=== PATIENT | male | born 1965 | race African-American/Black ===

== ENCOUNTER 2017-10-28 10:39 | Emergency (ER) | payer OTHER ==
[~2017-10-28] VITALS: Ht 185.4 cm; Wt 154.2 kg
--- OUTSIDE RECORDS SUMMARY | ~2017-10-28 | XMS | Clinical Summary ---
Demographics + + + | Address | [address] | | | [place] [address] | + + + | Home Phone | | + + + | Preferred Language | Unknown | + + + | Marital Status | | + + + | Hinduism Affiliation | 1009 | + + + | Race | Unknown | + + + | Ethnic Group | Unknown | + + + Author + + + | Author | [facility] | | | and [place] | + + + | Organization | [facility] | | | and [place] | + + + | Address | Unknown | + + + | Phone | Unavailable | + + + Support + + +---------+ + | Name | Relationship | Address | Phone | + + +---------+ + | Nadeen Viera | ECON | Unknown | | + + +---------+ + | Aquiles Castaneda | ECON | Unknown | | + + +---------+ + Care Team Providers + +------+ + | Care Hotel Housekeeper Name | Role | Phone | + +------+ + | Sofi Hayes PA-C | PP | Unavailable | + +------+ + Allergies + + + + + + | Active Allergy | Reactions | Severity | Noted | Comments | | | | | Date | | + + + + + + | Lisinopril | Hives, Rash | High | 02/04/20 | | | | | | 16 | | + + + + + + Current Medications + + +--------+---------+------+------+-------+ | Prescription | Sig. | Disp. | Refills | Star | End | Statu | | | | | | t | Date | s | | | | | | Date | | | + + +--------+---------+------+------+-------+ | losartan (COZAAR) | Take 100 mg by mouth | | | | | Activ | | 100 MG tablet | Daily. | | | | | e | + + +--------+---------+------+------+-------+ | amLODIPine | Take 5 mg by mouth | | | | | Activ | | (NORVASC) 5 mg | Daily. | | | | | e | | tablet | | | | | | | + + +--------+---------+------+------+-------+ | aspirin 81 mg | Take 1 tablet by | 30 | | 08/0 | | Activ | | chewable tablet | mouth Daily. | tablet | | 1/20 | | e | | | | | | 16 | | | + + +--------+---------+------+------+-------+ | nitroglycerin | Place 1 tablet under | 25 | 3 | 08/0 | | Activ | | (NITROSTAT) 0.4 mg | the tongue every 5 | tablet | | 1/20 | | e | | SL tablet | minutes as needed | | | 16 | | | | | for Chest pain. | | | | | | + + +--------+---------+------+------+-------+ | ticagrelor | Take 1 tablet by | 60 | 11 | 08/0 | | Activ | | (BRILINTA) 90 mg | mouth 2 times daily. | tablet | | 1/20 | | e | | tablet | | | | 16 | | | + + +--------+---------+------+------+-------+ | MAG OXIDE-VIT | Take by mouth 2 | | | | | Activ | | D3-TURMERIC PO | times daily. | | | | | e | + + +--------+---------+------+------+-------+ | atorvaSTATin | Take 1 tablet by | 90 | 3 | 09/0 | | Activ | | (LIPITOR) 80 MG | mouth nightly. | tablet | | 5/20 | | e | | tablet | | | | 17 | | | + + +--------+---------+------+------+-------+ | carvedilol (COREG) | Take 1 tablet by | 180 | 3 | 09/0 | | Activ | | 3.125 mg tablet | mouth 2 times daily | tablet | | 5/20 | | e | | | (with breakfast & | | | 17 | | | | | dinner). | | | | | | + + +--------+---------+------+------+-------+ Active Problems + + + | Problem | Noted Date | + + + | S/P right coronary artery (RCA) stent placement | 02/28/2016 | + + + + + | Overview: DIAGNOSIS/IMPRESSION: | | 1- 100% occlusion of the mid RCA - successfully stented with a | | synergy ROMAN | | 2- normal left main | | 3- non obstructive disease of the LAD and LCX | | 4- 90% lesion of a small diagonal - unable to cross | | | | PLAN: dual antiplatelet agents for a year | | Risk factor modification | + + + + + | Dyslipidemia, goal LDL below 70 | 02/05/2016 | + + + | Chest pain | 02/04/2016 | + + + | Essential hypertension with goal blood pressure less than 130/85 | 02/04/2016 | + + + | NSTEMI (non-ST elevated myocardial infarction) (HCC) | 02/04/2016 | + + + + + | Overview: 1- 100% occlusion of the mid RCA - successfully | | stented with a synergy ROMAN - normal left main3- non | | obstructive disease of the LAD and LCX4- 90% lesion of a small | | diagonal - unable to cross | |4- 90% lesion of a small diagonal - unable to cross | + + Family History + + +------+ + | Medical History | Relation | Name | Comments | + + +------+ + | Heart disease | Brother | | | + + +------+ + | Heart disease | Father | | | + + +------+ + | Diabetes, IDDM | Mother | | | + + +------+ + | Heart disease | Mother | | | + + +------+ + | Diabetes, IDDM | Sister | | | + + +------+ + | Heart disease | Sister | | | + + +------+ + + +------+--------+ + | Relation | Name | Status | Comments | + +------+--------+ + | Brother | | | | + +------+--------+ + | Father | | | | + +------+--------+ + | Mother | | | | + +------+--------+ + | Sister | | | | + +------+--------+ + Social History + +-------+ +--------+------+ | Tobacco Use | Types | Packs/Day | Years | Date | | | | | Used | | + +-------+ +--------+------+ | Never Smoker | | | | | + +-------+ +--------+------+ + +---+---+---+ | Smokeless Tobacco: | | | | | Never Used | | | | + +---+---+---+ + + +---------+ + | Alcohol Use | Drinks/We | oz/Week | Comments | | | ek | | | + + +---------+ + | Yes | | | Occasional | + + +---------+ + + + + | Sex Assigned at | Date Recorded | | | | + + + | Not on file | | + + + Last Filed Vital Signs + + + + | Vital Sign | Reading | Time Taken | + + + + | Blood Pressure | 136/92 | 01/15/2017 0832 PDT | + + + + | Pulse | 70 | 01/15/2017831 PDT | + + + + | Temperature | 36.4 C (97.5 F) | 02/06/2016712 PDT | + + + + | Respiratory Rate | 16 | 01/15/2017831 PDT | + + + + | Oxygen Saturation | 95% | 02/06/2016712 PDT | + + + + | Inhaled Oxygen | - | - | | Concentration | | | + + + + | Weight | 152 kg (335 lb) | 01/15/2017831 PDT | + + + + | Height | 185.4 cm (6' 1") | 01/15/201732 PDT | + + + + | Body Mass Index | 44.2 | 01/15/2017831 PDT | + + + + Plan of Treatment + + + + + | Health Maintenance | Due Date | Last Done | Comments | + + + + + | Hepatitis C | | | | | Screening | 4 | | | + + + + + | Vaccine: | | | | | Dtap/Tdap/Td (1 - | 3 | | | | Tdap) | | | | + + + + + | Vaccine: | 07/29/198 | | | | Pneumococcal 19-64 | 3 | | | | (PPSV23 only) Medium | | | | | Risk (1 of 1 - | | | | | PPSV23) | | | | + + + + + | COLON CANCER | | | | | SCREENING | 4 | | | | (COLONOSCOPY EVERY | | | | | 10 YEARS 50-75) | | | | + + + + + | Vaccine: Influenza | | | | | (Season Ended) | 8 | | | + + + + + Implants + +-------+--------+ +--------+--------+--------+ | Implanted | Type | Area | Manufacture | Device | Expira | Model | | | | | r | | tion | / | | | | | | Identi | Date | Serial | | | | | | fier | | / Lot | + +-------+--------+ +--------+--------+--------+ | Synergy Roman StentImplanted: | Stent | N/A: | [place] | | 10/30/ | | | Qty: 1 on 02/04/2016 by | | Brien | SCIENTIFIC | | 2016 | /[id number] | | Britney Penn MD | | ry | [employer] [employer] | | | [id number] | | | | | | | | 300 | | | | | | | | /[id number] | | | | | | | | 925 | + +-------+--------+ +--------+--------+--------+ Results Not on filefrom Last 3 Months Insurance + +--------+ +------+ +---------+ | Payer | Benefi | Subscriber | Type | Phone | Address | | | t Plan | ID | | | | | | / | | | | | | | Group | | | | | + +--------+ +------+ +---------+ | [employer] | PHP | xxxxxxxxxxx | PPO | [id number] | | | PLAN | PEBB | | | [id number] | | | | [address] | | | | | | | [place] | | | | | + +--------+ +------+ +---------+ + +--------+ +--------+ + + | Guarantor Name | Accoun | Relation to | Date | Phone | Billing Address | | | t Type | Patient | of | | | | | | | | | | + +--------+ +--------+ + + | YOMI VIERA | Person | Self [birth year] | Home: | [address] | | [place] | [place] | | 1965 | [phone] | [place] [address] | | | gema | | [phone] | | + +--------+ +--------+ + +
--- OUTSIDE RECORDS SUMMARY | ~2017-10-28 | XMS | Clinical Summary ---
Demographics + + + | Address | [address] | | | [place] [address] | + + + | Home Phone | | + + + | Preferred Language | Unknown | + + + | Marital Status | | + + + | Tenriism Affiliation | 1009 | + + + | Race | Unknown | + + + | Ethnic Group | Unknown | + + + Author + + + | Author | [facility] | | | and [place] | + + + | Organization | [facility] | | | and [place] | [...] Team Providers + +------+ + | Care Cost Specialist Name | Role | Phone | + [...] | [employer] | | | [id number] | | | | | | | | [phone] | | | | | | | | /[phone] | | | | | | | [...] | PHP | [phone] | PPO | [id number] | | | PLAN | PEBB | [...] | Self | [birth year] | Home: | [address] | | [place] | [place] | | 1965 | [phone] | [place] [address] | | | gema | | | [phone] | | + +--------+ +--------+ + +
[~2017-10-28 10:39] MED LIST: AMLODIPINE BESYL5 MG PO; ASPIRIN81 MG PO; BRILINTA90 MG PO; CARVEDILOL3.125 MG PO; CHLORTHALIDONE25 MG PO; COZAAR100 MG PO; FISH OIL 1,0001 EAC2 NG; GLUCOSAMINE CO1 EAC1 PO; HYDROCODON-ACE1 EA10 PO; IBUPROFEN800 MG PO
[2017-10-28] MEDS ORDERED: CIPRO500 MG PO (14:53)
[2017-10-28] MEDS ORDERED: NORCO 5-325 TA1 EACH PO (14:53)
== END 2017-10-28 15:09 | disposition home or self-care (01) ==
LOC: ED 10:39
DX: N12 Tubulo-interstitial nephritis, not specified as acute or chronic (principal); I10 Essential (primary) hypertension; Z88.8 Allergy status to other drugs, medicaments and biological substances; Z79.82 Long term (current) use of aspirin; Z79.899 Other long term (current) drug therapy
CPT/HCPCS: 74176; 80053; 81001; 85025; 87088; 96374; 96375; 99284; J0696; J1885; J7030

== ENCOUNTER 2020-06-23 06:47 | Day surgery (SDC) | payer OTHER ==
[~2020-06-23] VITALS: Ht 185.4 cm; Wt 150.0 kg
--- NOTE | ~2020-06-23 | OR ---
[facility] [address], [place] [address] Draft DATE OF OPERATION: 06/23/2020 SURGEON: Tatiana Guerra MD PREOPERATIVE DIAGNOSES: 1. Hyperplastic rectal polyps in 2014. 2. Internal hemorrhoids. 3. Brother with high-grade dysplastic cecal lesion requiring right colectomy in his late 60s. 4. Both sisters with colonic polyps in their 50s. POSTOPERATIVE DIAGNOSES: 1. Hyperplastic rectal polyps in 2014. 2. Internal hemorrhoids. 3. Brother with high-grade dysplastic cecal lesion requiring right colectomy in his late 60s. 4. Both sisters with colonic polyps in their 50s. 5. Small internal anal skin tags. PROCEDURE: Colonoscopy without biopsy. ESTIMATED BLOOD LOSS: None. INDICATIONS: Yomi is a 55-year-old gentleman, who asked to see me for a followup colonoscopy. I took care of his brother for right colectomy involving a mass in the cecum with focal high-grade dysplasia. His brother was in his late 60s. He also has two sisters, who have had colonic polyps removed. Yomi had his colonoscopy back in February 2015. We took out several hyperplastic polyps in the mid to distal rectum. He also had minimal internal hemorrhoid tissue. He returns now for his followup colonoscopy. He has no lower GI complaints. I gave him a pamphlet in the office on colonoscopy, and we had reviewed that together. He understands the nature of the test along with the risks including, but not limited to gas bloating, crampy abdominal pain, bleeding, perforation requiring surgery, and missed diagnosis. He also understands the need for IV conscious sedation. He had expressed understanding and wished to proceed. DESCRIPTION OF PROCEDURE: Yomi was taken into our endoscopy suite and placed in the left lateral decubitus PATIENT NAME: YOMI VIERA OPERATIVE REPORT DATE OF : 63 REPORT #: [id number] PHYSICIAN: TATIANA GUERRA MD PCP: SOFI GUERRERO REPORT IS CONFIDENTIAL AND NOT TO BE RELEASED WITHOUT AUTHORIZATION [facility] [address] [place], [place] [address] Draft position. He was given preoperative antibiotic due to his left hip replacement. We gave him a total of 5 mg of Versed and 125 mcg of fentanyl to cover the case. A digital rectal exam was performed and this was unremarkable. The adult colonoscope was introduced and advanced quite readily into the cecum itself without difficulty. His prep was quite excellent. We could easily see the appendiceal orifice and the ileocecal valve. The scope was slowly withdrawn. We took pictures throughout for photodocumentation. We could see previous polypectomy scars in the rectum, they are all healed over quite nicely. He has no diverticulosis and no polyps on this occasion. Upon retroflexion of scope, I can see five small internal anal skin tags, really not much in the way of hemorrhoid tissue. After this, the gas was suctioned out, the colonoscope removed. Yomi tolerated his procedure quite well. RECOMMENDATIONS: We will see Yomi back in 5 years for repeat colonoscopy. Tatiana Guerra MD ALB/MODL /[id number] cc: MD Sofi Bustillo PA Copies: TATIANA GUERRA MD, LINDA PA ~ PATIENT NAME: YOMI VIERA OPERATIVE REPORT DATE OF : 63 REPORT #: [id number] PHYSICIAN: TATIANA GUERRA MD PCP: SOFI GUERRERO REPORT IS CONFIDENTIAL AND NOT TO BE RELEASED WITHOUT AUTHORIZATION
[~2020-06-23 06:47] MED LIST changes: +CIPRO500 MG PO; +LIPITOR80 MG PO; +MOBIC15 MG PO; +NORCO 5-325 TA1 EACH PO; +VITAMIN D310 MC5 PO
--- NOTE | 2020-06-23 09:03 | NUR ---
06/23/20 0903 Nohemi Graff 0850- PT TO PACU IN LL POSITION. EYES OPEN BUT EASILY FALLS TO SLEEP. BREATHING EASY AND UNLAOBRED.SPO2 >90% ON 3 L O2 VIA NC. 0900- PT REPOSITIONS SELF IN BED. HOB ELEVATED. DENIES DIZZINESS OR NAUSEA. SPO2 >90%. O2 TITRATED DOWN TO ROOM AIR.
--- NOTE | 2020-06-23 10:25 | NUR ---
PT ALERT, ORIENTED AND SUPPORATED BY FAMILY. PT HAS HAD PREVIOUS SCOPE, SEEMED PREPARED. DID NOT CARE MUCH FOR PREP-READY TO EAT. ALL QUESTIONS ASKED WERE ANSWERED. GAVE BLESSING WILL FOLLOW NEEDED
== END 2020-06-23 09:20 | disposition home or self-care (01) ==
LOC: OPS 06:47 → DS 07:00 → OPS 08:15 → DS 08:15 → OPS 09:20
PROVIDERS: ATTEND Colon & Rectal Surgery
PROC: 0DJD8ZZ Inspection of Lower Intestinal Tract, Via Natural or Artificial Opening Endoscopic (ICD-10-PCS; principal; 2020-06-23 08:15)
DX: Z12.11 Encounter for screening for malignant neoplasm of colon (principal); K64.4 Residual hemorrhoidal skin tags; K64.8 Other hemorrhoids; I10 Essential (primary) hypertension; E78.5 Hyperlipidemia, unspecified; E66.9 Obesity, unspecified; I25.10 Atherosclerotic heart disease of native coronary artery without angina pectoris; M19.90 Unspecified osteoarthritis, unspecified site; I25.2 Old myocardial infarction; Z80.0 Family history of malignant neoplasm of digestive organs; Z87.19 Personal history of other diseases of the digestive system; Z79.899 Other long term (current) drug therapy; Z79.82 Long term (current) use of aspirin; Z79.1 Long term (current) use of non-steroidal anti-inflammatories (NSAID); Z95.5 Presence of coronary angioplasty implant and graft; Z87.891 Personal history of nicotine dependence; Z88.8 Allergy status to other drugs, medicaments and biological substances; Z68.41 Body mass index [BMI] 40.0-44.9, adult
CPT/HCPCS: 99153; G0500; J0690; J2250; J3010; J7121